=== PATIENT | female | born 1985 | race Hispanic/Latino ===

== ENCOUNTER 2022-03-09 16:02 | Emergency (ER) | payer MEDICAID ==
[~2022-03-09] VITALS: Ht 162.6 cm; Wt 80.0 kg
[2022-03-09] MEDS ORDERED: SERTRALINE XX (17:08)
[2022-03-09] MEDS ORDERED: ADDERALL10 MG PO (17:09)
[2022-03-09 17:53] LABS: HEMATOCRIT 41.9 % (37.0-47.0); HEMOGLOBIN 14.5 g/dl (12.0-16.0); IMMATURE GRANULOCYTES 0.1 % (0.0-5.0); MEAN CELL VOLUME 86.2 fL CALC (80.0-100.0); MEAN CORPUSCULAR HGB 29.8 pG CALC (26.0-32.0); MEAN CORPUSCULAR HGB CONC 34.6 g/dL CAL (32.0-36.0); NEUT# 4.82 thou/uL (2.00-7.15); RED BLOOD COUNT 4.86 mill/uL (4.20-5.60); RED CELL DISTRI WIDTH 13.1 % (11.5-15.5)
[2022-03-09 18:10] LABS: ALBUMIN 4.6 g/dL (3.2-5.0); ALKALINE PHOSPHATASE 97 u/l (38-126); ANION GAP 14 (6-22 (CALC)); BILIRUBIN, TOTAL 0.2 mg/dL (0.0-1.4); BUN 18 mg/dL (7-17); BUN/CREATININE RATIO 31 (12-20 (CALC)); CARBON DIOXIDE 25 mmol/l (22-30); CHLORIDE 106 mmol/l (95-108); CREATININE 0.6 mg/dL (0.5-1.0); GFR > 60 ML/MIN (>=60 (CALC)); GFR FOR AFR.AMER. > 60 ML/MIN (>=60 (CALC)); SGOT/AST 32 u/l (14-36); SODIUM 142 mmol/l (137-146); TOTAL PROTEIN 8.2 g/dL (6.3-8.2)
[2022-03-09 20:22] VITALS: BP 120/70
== END 2022-03-09 20:30 | disposition home or self-care (01) ==
LOC: ED 16:02
PROVIDERS: Nurse Practitioner
DX: R07.0 Pain in throat (principal); Z20.822 Contact with and (suspected) exposure to COVID-19
CPT/HCPCS: Q9967